=== PATIENT | female | born 1990 | race Caucasian/White ===

== ENCOUNTER 2018-11-23 20:24 | Outpatient (CLI) | payer OTHER ==
[~2018-11-23] VITALS: Ht 157.5 cm; Wt 63.3 kg
[~2018-11-23 20:24] MED LIST: CEPH-443 PO; PREN1TAB62 PO
[2018-11-23 21:11] VITALS: Ht 157.5 cm; Wt 63.3 kg
--- NOTE | 2018-11-23 22:39 | PN ---
Triage Information Date/Time Reason for visit: Abd/pelvic pain Weeks of Gestation 28-year-old 5 para 3 at 28 weeks and 3 days of gestation with estimated date of delivery February 12, 2019 Patient presents with chief complaint of abdominal pain She reports positive movement, denies vaginal bleeding or leaking fluid /Para 5 para 3 Diabetes: none Hypertention: none Objective Heart Rate: 140's Heart Rate Comments heart rate tracing category 1 Contractions: None Results/Medications Results 24 hrs Laboratory Tests Test 11/23/18 20:45 Urine Color YELLOW Urine Clarity CLEAR Urine pH 7.0 Urine Specific Belen 1.012 Urine Ketones NEGATIVE Urine Nitrite NEGATIVE Urine Bilirubin NEGATIVE Urine Urobilinogen NEGATIVE Urine Leukocyte Esterase NEGATIVE Urine Hemoglobin NEGATIVE Urine Glucose NEGATIVE Urine Total Protein NEGATIVE Imaging Results PROCEDURE: Ultrasound Biophysical profile with amniotic fluid index with transvaginal CLINICAL INDICATION: Contractions TECHNIQUE: Color and medeiros-scale ultrasound images of an intrauterine gestation were obtained. COMPARISON: 09/27/2018 FINDINGS: A single live intrauterine gestation is identified in breech position with an estimated heart rate of 161 beats per minute. The placenta is right lateral. There is no evidence of placental abruption. TAISHA is 16.7 cm. The length of the cervix equals 5.17 cm on transvaginal ultrasound. The cervix is closed. movement 2/2. tone 2/2. breathing movement 2/2. Qualitative AFV 2/2 Total biophysical profile 01/04 IMPRESSION: 01/04 biophysical profile. TAISHA is 16.7 cm. RPTAT: HJES .Abel Argueta MD, MD Date Time Electronically viewed and signed by .Abel Argueta MD, on 11/23/2018 21:45 .S/ CC: SHANELLE STOCK MD [id number] Disposition: Discharge Assessment/Plan Patient instructed to increase p.o. hydration Labor precautions were given Patient instructed to follow-up with [facility] in 1 to 2 days INGRIS GRANT MD Nov 23, 2018 22:39
--- NOTE | 2018-11-24 00:24 | TRIAGE ---
OB Triage Datetime Report Generated by CPN: 11/24/2018 00:24 Datetime: 11/24/2018 21:55 Stage of : OB Triage Labor Evaluation Frequency: X2/45 Monitor Mode: External Duration (sec)2399: 30-40 Quality: Mild Pattern: Normal: <= 5 Contractions in 10 Minutes Resting Tone [place]: Relaxed Datetime: 11/23/2018 21:19 Time of Arrival: 11/23/2018 20:15 EGA: 28.3 Arrived By: Wheelchair Arrived From: Home Chief Complaint: CXS SINCE 1800, VAGINAL PAIN Movement: Present Contractions: Occasional Rupture of Membranes: Denies Vaginal Discharge: Denies Recent Sexual Intercouse: Denies Time Provider Notified: 11/23/2018 21:31 Provider Notified: EDGARDO Initial Plan: EFM, ASSESSMENT, CALL MD FOR ORDERS Datetime: 11/23/2018 21:15 Stage of : OB Triage Labor Evaluation Frequency: X2/30 MIN Monitor Mode: External Duration (sec)2399: 30-40 Quality: Mild Pattern: Normal: <= 5 Contractions in 10 Minutes Resting Tone [place]: Relaxed Heart Rate FHR Baseline Rate: 140 Monitor Mode: Doppler Datetime: 11/23/2018 21:02 Monitor Mode: Doppler Comments: 138-140 BPM BY DOPPLER, CANNOT GET FHT WITH U/S Datetime: 11/23/2018 21:00 Assessment Type: Triage Maternal Assessment Level of Consciousness: Keenly Alert, Responsive DTR's/Clonus: DTRs 2+; No Clonus Headache: Denies Blurred Vision: No Respiratory Effort: Unlabored; Regular Rhythm; Equal Expansion Breath Sounds, Left: Clear and Equal Breath Sounds, Right: Clear and Equal Nausea/Vomiting: Denies RUQ Epigastric Pain: Denies Lower Extremities Edema: None Upper Extremities Edema: None Facial Edema: None Fall Risk Assessment History of Falling: (0) No Secondary Diagnosis: (0) No Ambulatory Aid: (0) Bedrest/Nurse Assist IV Therapy: (0) No Gait: (0) Normal/Bedrest/Immobile Mental Status: (0) Oriented to Own Ability Fall Score: 0 Fall Risk Score Definition: No Risk: No action required
== END 2018-11-23 22:06 | disposition home or self-care (01) ==
LOC: L-D 20:24 → OBT 20:24
PROVIDERS: ATTEND Obstetrics & Gynecology
DX: O26.893 Other specified pregnancy related conditions, third trimester (principal); R10.9 Unspecified abdominal pain; Z3A.28 28 weeks gestation of pregnancy
CPT/HCPCS: 76817; 76818; 81003; Z7500; G0463

== ENCOUNTER 2019-02-05 12:59 | Inpatient (IN) | payer OTHER ==
[~2019-02-05] VITALS: Ht 157.5 cm; Wt 64.9 kg
[~2019-02-05 12:59] MED LIST changes: +ACET325T33 PO; -CEPH-443 PO; +IBUP800T48 PO
[2019-02-05] MEDS ORDERED: OXYTOCIN 30 UNITS/LR 500 ML IV SCH (13:30)
[2019-02-05] MEDS ORDERED: CARBOPROST 250 MCG INJ IM PRN ×2 (13:30→21:00)
[2019-02-05] MEDS ORDERED: OXYTOCIN 30 UNITS/LR 500 ML IV PRN ×2 (13:30→21:00)
[2019-02-05] MEDS ORDERED: AZITHROMYCIN 500MG/NS (PMX) 250 ML IV SCH (13:30)
[2019-02-05] MEDS ORDERED: METHYLERGONOVINE 0.2 MG INJ IM PRN ×2 (13:30→21:00)
[2019-02-05] MEDS ORDERED: CEFAZOLIN 2 GM/50 ML (PMX) 50 ML IVPB SCH (13:30)
[2019-02-05] MEDS ORDERED: MISOPROSTOL 200 MCG TAB PR PRN ×2 (13:30→21:00)
[2019-02-05] MEDS: LACTATED RINGER'S 1,000 ML IV SCH ×2 (13:46→16:12)
[2019-02-05 13:49] VITALS: Ht 157.5 cm; Wt 64.9 kg
[2019-02-05 13:51] VITALS: BP 117/76; PULSE 89; RESP 18
[2019-02-05] MEDS ORDERED: PHENYLephrine (100 MCG/ML) 10ML SYG ONE ×2 (15:37→16:35)
[2019-02-05] MEDS ORDERED: FENTAnyl 50 MCG/ML VIAL ONE (15:37)
[2019-02-05] MEDS ORDERED: morphine SULFATE/PF (10 MG/10 ML) INJ ONE (15:37)
[2019-02-05] MEDS ORDERED: ONDANSETRON 4 MG INJ IV PRN (16:00)
[2019-02-05] MEDS ORDERED: DIPHENHYDRAMINE 50 MG INJ IV PRN (16:00)
[2019-02-05] MEDS ORDERED: HYDROmorphONE 0.5 MG/0.5 ML SYG IV PRN ×2 (16:00)
[2019-02-05] MEDS ORDERED: ZOLPIDEM 5 MG TAB PO PRN (16:00)
[2019-02-05] MEDS ORDERED: NALOXONE (0.4 MG/ML) INJ IV PRN (16:00)
[2019-02-05] MEDS ORDERED: ONDANSETRON 4 MG INJ ONE (16:25)
[2019-02-05] MEDS ORDERED: DEXAMETHASONE 4 MG/ML 1 ML INJ ONE (16:25)
[2019-02-05] MEDS ORDERED: ACETAMINOPHEN 500 MG TAB PO STA (17:33)
[2019-02-05] MEDS ORDERED: KETOROLAC 30 MG INJ IV STA (17:33)
[2019-02-05 20:50] VITALS: BP 122/59; PULSE 66; RESP 18
[2019-02-05] MEDS ORDERED: NA PHOSPHATE/BIPHOS 133 ML ENEMA PR PRN (21:00)
[2019-02-05] MEDS ORDERED: LANOLIN HPA 1 PKT TOP PRN (21:00)
[2019-02-05] MEDS ORDERED: LACTATED RINGER'S 1,000 ML IV SCH (21:00)
[2019-02-05] MEDS ORDERED: OXYCODONE/ACETAMINOPHEN (5/325) TAB PO PRN (21:00)
[2019-02-05] MEDS: SENNA/DOCUSATE NA (8.6MG/50MG) TAB PO SCH (21:00)
[2019-02-05] MEDS: IBUPROFEN 800 MG TAB PO SCH (22:00)
[2019-02-05 23:45] VITALS: BP 120/70; PULSE 82; RESP 18
[2019-02-06] MEDS: CLINDAMYCIN 300 MG CAP PO SCH ×4 (00:27→17:30)
[2019-02-06] MEDS: CEFAZOLIN 2 GM/50 ML (PMX) 50 ML IVPB SCH ×3 (00:54→15:37)
[2019-02-06 04:05] VITALS: BP 103/56; PULSE 72; RESP 18
[2019-02-06] MEDS: IBUPROFEN 800 MG TAB PO SCH ×3 (06:00→22:30)
[2019-02-06 07:30] VITALS: BP 105/67; PULSE 75; RESP 17
[2019-02-06] MEDS: SENNA/DOCUSATE NA (8.6MG/50MG) TAB PO SCH ×2 (08:42→21:10)
[2019-02-06] MEDS ORDERED: BISACODYL 10 MG SUPP PR ONE (10:00)
[2019-02-06] MEDS ORDERED: LACTATED RINGER'S 1,000 ML IV SCH (10:30)
[2019-02-06] MEDS ORDERED: KETOROLAC 30 MG INJ IV STA (15:45)
[2019-02-06 16:00] VITALS: BP 106/68; PULSE 80; RESP 18
[2019-02-06 20:20] VITALS: BP 119/69; PULSE 73; RESP 18
[2019-02-06] MEDS: HYDROCODONE/APAP (5/325) TAB PO PRN (21:10)
[2019-02-07] MEDS: CLINDAMYCIN 300 MG CAP PO SCH ×4 (00:19→17:11)
[2019-02-07 04:40] VITALS: BP 121/75; PULSE 73; RESP 17
[2019-02-07] MEDS: IBUPROFEN 800 MG TAB PO SCH ×3 (05:41→22:29)
[2019-02-07 07:30] VITALS: BP 123/76; PULSE 61; RESP 17
[2019-02-07] MEDS: SENNA/DOCUSATE NA (8.6MG/50MG) TAB PO SCH ×2 (08:47→20:36)
[2019-02-07 16:00] VITALS: BP 129/67; PULSE 60; RESP 18
[2019-02-07] MEDS ORDERED: ACETAMINOPHEN 325 MG TAB PO PRN (17:30)
[2019-02-07] MEDS: HYDROCODONE/APAP (5/325) TAB PO PRN (19:28)
[2019-02-07 20:00] VITALS: BP 126/84; PULSE 73; RESP 18
[2019-02-08] MEDS: CLINDAMYCIN 300 MG CAP PO SCH ×3 (02:13→12:11)
[2019-02-08 04:32] VITALS: BP 119/75; PULSE 65; RESP 18
[2019-02-08] MEDS: IBUPROFEN 800 MG TAB PO SCH (06:08)
[2019-02-08 08:00] VITALS: BP 124/86; PULSE 71; RESP 17
[2019-02-08] MEDS ORDERED: MEASLES,MUMPS,RUBELLA VACCINE INJ SC* ONE (09:00)
[2019-02-08] MEDS ORDERED: DIPHTH/TET/ACEL PERTUSS (ADULT) 0.5 ML VIAL IM* ONE (09:00)
[2019-02-08] MEDS: SENNA/DOCUSATE NA (8.6MG/50MG) TAB PO SCH (09:48)
== END 2019-02-08 13:46 | disposition home or self-care (01) | DRG 785 ==
LOC: L-D 12:59 → PP1 20:53
PROVIDERS: ADMIT Obstetrics & Gynecology; ATTEND Obstetrics & Gynecology
PROC: 0UT70ZZ Resection of Bilateral Fallopian Tubes, Open Approach (ICD-10-PCS; 2019-02-05)
PROC: 10907ZC Drainage of Amniotic Fluid, Therapeutic from Products of Conception, Via Natural or Artificial Opening (ICD-10-PCS; 2019-02-05)
PROC: 10D00Z1 Extraction of Products of Conception, Low, Open Approach (ICD-10-PCS; principal; 2019-02-05 15:30)
DX: O34.211 Maternal care for low transverse scar from previous cesarean delivery (principal); Z3A.39 39 weeks gestation of pregnancy; Z37.0 Single live birth
CPT/HCPCS: 85025; 85610; 85730; 86592; 86850; 86900; 86901; 87340; 88302; 99464; J0456; J0690; J1100; J1885; J2274; J2370; J2405; J2590; J3010; J7120